=== PATIENT | female | born 1970 | race Caucasian/White ===

== ENCOUNTER 2017-01-08 15:32 | Observation (INO) ==
[2017-01-08] MEDS ORDERED: *HR* Promethazine 25 MG/ML VIAL IVP PRN (15:50)
[2017-01-08] MEDS ORDERED: Ondansetron 4 MG/2 ML VIAL IVP PRN (15:50)
[2017-01-08] MEDS ORDERED: *HR* Morphine 2 MG/ML SYRINGE IVP PRN (15:50)
[2017-01-08] MEDS ORDERED: *HR* HYDROmorphone (PF) 1 MG/ML SYRINGE IVP PRN (15:50)
[2017-01-08] MEDS ORDERED: Ketorolac 15 MG/ML VIAL IVP PRN (15:50)
[2017-01-08] MEDS ORDERED: Naloxone 0.4 MG/ML INJ IVP PRN (15:50)
[2017-01-08] MEDS ORDERED: Levofloxacin 500 MG/100 ML 500 MG/100 ML BAG IVPB ONE (16:29)
--- NOTE | 2017-01-08 16:31 | Urology History & Physical ---
Date of Encounter: 01/08/17 Time of Encounter: 16:29 Assessment and Plan (1) Ureteral stone with hydronephrosis Current Visit: Yes Status: Acute I reviewed the CT images and feel that she has a 5 mm mid to distal right ureteral calculi. This is likely the source of her pain. She's been admitted to the hospital for IV fluids, pain control, tamsulosin and straining of urine. If she is unable to pass a stone she will proceed with a ureteroscopic stone extraction. Started been consented and understands the risks of the procedure which includes injury to the urinary tract, stent discomfort, urinary tract infections, inability to reach the stone. History of Present Illness Chief complaint: right flank pain HPI: Ms. Willingham is a 46 year old female recent severe right flank pain. Has a history of urolithiasis. CT scan yesterday with a report that indicates bilateral nonobstructing stones. On further review it appears she has a 5 mm right mid to distal ureteral stone. Mild hydronephrosis/hydroureter. Positive nausea. Low- grade fever. Past Med Surg Social Fam HX - Past Medical History Medical history: coronary artery disease, GERD, hyperlipidemia, hypertension, kidney stones, migraine, thyroid disease Psychiatric history: anxiety, depression - Past Surgical History Surgical History: appendectomy, hysterectomy, orthopedic, other, thyroidectomy, other - Social History Smoking Status: Current every day smoker Smokeless Tobacco Status: No Alcohol use: occasionally Drug use: none Medications and Allergies Aspirin 81 mg PO DAILY 07/06/15 [History] Cetirizine HCl [Zyrtec] 10 mg PO DAILY 07/06/15 [History] Diazepam [Valium] 10 mg PO TID PRN 07/06/15 [History] Escitalopram [Lexapro] 20 mg PO DAILY 07/06/15 [History] Levothyroxine [Synthroid] 168 mcg PO DAILY 07/06/15 [History] Clopidogrel [Plavix] 75 mg PO DAILY #30 tablet 09/06/15 [Rx] Docusate [Colace] 100 mg PO BID #60 capsule 08/30/16 [Rx] Lovastatin 40 mg PO HS 08/30/16 [History] Metoprolol XL (24 HR) Succ [Toprol Xl] 25 mg PO DAILY 08/30/16 [History] Omeprazole 20 mg PO QPM 08/30/16 [History] OxyCODONE/APAP 10/325 [Percocet 10/325 MG] 1 each PO Q6HR PRN 08/30/16 [History] Tamsulosin [Flomax] 0.4 mg PO DAILY #30 capsule 08/30/16 [Rx] Topiramate [Topamax] 100 mg PO BID 08/30/16 [History] Venlafaxine XR (24 HR) [Effexor Xr] 37.5 mg PO DAILY 08/30/16 [History] Arginine [l-Arginine] 500 mg PO DAILY 10/08/16 [History] Estradiol [Estrace] 1 mg PO DAILY 10/08/16 [History] Olopatadine HCl [Pataday] 1 drop BOTH EYES DAILY 10/08/16 [History] Oxycodone HCl/Acetaminophen [Percocet 10-325 mg Tablet] 1 each PO Q6HR PRN #28 tablet 10/08/16 [Rx] Potassium Chloride [Klor-Con 10] 10 meq PO DAILY 10/08/16 [History] Rivaroxaban [Xarelto] 10 mg PO DAILY #21 tablet 10/08/16 [Rx] Allergies sulfamethoxazole [From Bactrim] Allergy (Verified 10/08/16 07:49) Hives trimethoprim [From Bactrim] Allergy (Verified 10/08/16 07:49) Hives Review of Systems - Constitutional fatigue, fever(s), no chills - EENT Nose, mouth and throat: no dizziness - Cardiovascular no chest pain - Respiratory cough - Gastrointestinal abdominal pain, nausea - Genitourinary Genitourinary: flank pain - Musculoskeletal back pain - Integumentary no erythema - Neurological no confusion - Psychiatric no anxiety - Hematologic/Lymphatic no easy bleeding Exam Initial Vital Signs Temp Pulse Resp BP Pulse Ox 100.6 F H 82 14 146/83 96 01/08/17 16:09 01/08/17 16:09 01/08/17 16:09 01/08/17 16:09 01/08/17 16:09 - General physical appearance Present: well developed, no distress - Eyes Present: PERRL - ENT Present: normal nares - Neck Present: no masses - Respiratory Present: normal respiratory effort - Cardiovascular Cardiovascular exam IM: RRR - Abdomen Abdomen: Present: soft - Integumentary Present: no rash - Neurologic Present: normal coordination - Musculoskeletal Present: normal gait Urology Results - Labs All other labs normal.
[2017-01-08] MEDS ORDERED: diazePAM 10 MG TABLET PO PRN (16:34)
[2017-01-08 17:02] LABS: Calcium 8.8 mg/dL (8.6-10.8); Potassium 3.7 mEq/L (3.5-4.5)
[2017-01-08] MEDS: 0.9 % Sodium Chloride 1,000 ML IVC SCH (17:02)
[2017-01-08 17:58] LABS: Basophils % 0.1 %; Eosinophils % 0.5 %; Hematocrit 38.9 % (35.3-44.9); Immature Granulocytes % 0.4 % (0-4); Lymphocytes # 1.1 K/mcL (0.6-4.6); Lymphocytes % 13.1 %; Mean Corpuscular HGB Conc 33.4 g/dL (31.6-35.5); Mean Corpuscular Hemoglobin 30.5 pg (28.0-33.3); Mean Corpuscular Volume 91.3 fL (83.0-100.0); Mean Platelet Volume 10.6 fL (9.4-12.4); Monocytes # 0.6 K/mcL (0.0-1.3); Monocytes % 7.6 %; Neutrophils # 6.4 K/mcL (1.6-8.9); Platelet Count 188 K/mcL (140-400); Red Blood Count 4.26 M/mcL (3.82-4.97); Segmented Neutrophils % 78.3 %
[2017-01-08] MEDS: *HR* OxyCODONE/APAP 10/325 TABLET PO PRN (18:09)
--- NOTE | 2017-01-08 19:47 | Anesthesia Evaluation PreOp ---
Date of Encounter: 01/08/17 Time of Encounter: 19:44 - Past History Planned Operation: R-ureteroscopic stone extraction Cardiac History: HTN (maintained on Metoprolol), Hyperlipidemia (maintained on Lovastatin), Other (Peripheral Artery Dz s/p Subclavian stent maitnained on ASA/ Plavix [last Plavix dose 01/07/17]) Pulmonary History: Smoker (1ppd x 30yrs) DEPUTY DIRECTOR OF FINANCE History: Syncope (approximately 3 months ago), Other (Migraines tx w/ Topamax prn. Anxiety/Depression maintained on Lexapro, Effexor, Valium) Other Medical History: Renal (Hx kidney stones s/p multiple stone procedures, tx w/Flomax), Bleeding (maintained on Xarelto), Thyroid ( s/p thyroidectomy. Hypothryoidism maintained on Syntrhoid), Other (Glaucoma maintained on Ptaday eye gtt. RayNaud's syndrome) Anesthesia History: No Prior Anesthetic Complications, Past Anesthesia (Appy, Hyster, Partial Thyroidectomy, Bunionectomy, SC stent) Alcohol Use: occasionally Drug use: none Medications and Allergies Aspirin 81 mg PO DAILY 07/06/15 [History] Cetirizine HCl [Zyrtec] 10 mg PO DAILY 07/06/15 [History] Diazepam [Valium] 10 mg PO TID PRN 07/06/15 [History] Escitalopram [Lexapro] 20 mg PO DAILY 07/06/15 [History] Levothyroxine [Synthroid] 168 mcg PO DAILY 07/06/15 [History] Clopidogrel [Plavix] 75 mg PO DAILY #30 tablet 09/06/15 [Rx] Docusate [Colace] 100 mg PO BID #60 capsule 08/30/16 [Rx] Lovastatin 40 mg PO HS 08/30/16 [History] Metoprolol XL (24 HR) Succ [Toprol Xl] 25 mg PO DAILY 08/30/16 [History] Omeprazole 20 mg PO QPM 08/30/16 [History] OxyCODONE/APAP 10/325 [Percocet 10/325 MG] 1 each PO Q6HR PRN 08/30/16 [History] Tamsulosin [Flomax] 0.4 mg PO DAILY #30 capsule 08/30/16 [Rx] Topiramate [Topamax] 100 mg PO BID 08/30/16 [History] Venlafaxine XR (24 HR) [Effexor Xr] 37.5 mg PO DAILY 08/30/16 [History] Arginine [l-Arginine] 500 mg PO DAILY 10/08/16 [History] Estradiol [Estrace] 1 mg PO DAILY 10/08/16 [History] Olopatadine HCl [Pataday] 1 drop BOTH EYES DAILY 10/08/16 [History] Oxycodone HCl/Acetaminophen [Percocet 10-325 mg Tablet] 1 each PO Q6HR PRN #28 tablet 10/08/16 [Rx] Potassium Chloride [Klor-Con 10] 10 meq PO DAILY 10/08/16 [History] Rivaroxaban [Xarelto] 10 mg PO DAILY #21 tablet 10/08/16 [Rx] Allergies sulfamethoxazole [From Bactrim] Allergy (Verified 10/08/16 07:49) Hives trimethoprim [From Bactrim] Allergy (Verified 10/08/16 07:49) Hives - Meds/Allergy Pre-op Review Medications Reviewed: Yes Allergies Reviewed: Yes Beta Blockers on Current Med List: Yes (Metoprolol) If Beta Blockers taken, Date/Time (Last Dose taken): next dose scheduled for 01/09 @ 0900 Anesthesia Results - Labs 01/08/17 16:27 01/08/17 16:27 - Imaging EKG: image reviewed (56 SB) Anesthesia Exam Vital Signs Temp Pulse Resp BP Pulse Ox 01/08/17 19:53 99.7 F H 80 16 95/57 94 L 01/08/17 16:09 100.6 F H 82 14 146/83 96 Intake and Output 01/08/17 01/08/17 01/08/17 07:59 15:59 23:59 Intake Total 370 / 370 Output Total 600 / 600 Balance -230 / -230 Intake: Oral 370 / 370 Output: Urine 600 / 600 Other: Meal Dinner Percent of Meal Consumed 75% Weight 63.9 kg Patient Weight 01/08/17 23:59 Weight 63.9 kg Height: 5'5" Weight: 140# bmI = 23 - HEENT Pupil (Motor): Pupils equal, EOMI Mallampati: II Teeth: Normal (Fair dentition) Oral Opening: Greater than 3 - [employer]PUTY DIRECTOR [employer] FIN[employer] LOC: Oriented [employer]PUT[employer] DIRECTOR [employer] Motor: Normal RUE, Normal LUE, Normal RLE, Normal LLE, Normal Face [employer]PUT[employer] DIRECTOR [employer] Sensory: Normal: RUE, LUE, RLE, LLE, Face - Cardiac Rhythm: Regular Murmur: None - Pulmonary Breath Sounds: bilateral Clear Respiratory Effort: Symmetrical Anesthesia Assess/Plan ASA Score: 3 Modified Geovani Scale for Level of Consciousness: Cooperative, oriented, and tranquil Anesthetic Plan: General Monitoring Plan: Standard Monitors Recovery Plan: PACU Anes Supervising Prov Stmt: Pt seen/evaluated, R&B Discussed, questions answered and consent obtained. Evelyne Saldana MD
[2017-01-08] MEDS: Topiramate 100 MG TABLET PO SCH (21:38)
[2017-01-09] MEDS: *HR* OxyCODONE/APAP 10/325 TABLET PO PRN ×2 (00:31→08:40)
[2017-01-09] MEDS: 0.9 % Sodium Chloride 1,000 ML IVC SCH ×2 (01:35→08:41)
--- NOTE | 2017-01-09 07:17 | Urology Progress Note ---
Date of Encounter: 01/09/17 Time of Encounter: 07:16 - Assessment and Plan (1) Ureteral stone with hydronephrosis Current Visit: Yes Status: Acute Assessment and plan: to OR today for stone extraction Progress Note Narrative: HD 2 for right flank pain and likely mid ureteral stone. did not pass stone Objective Initial Vital Signs Temp Pulse Resp BP Pulse Ox 100.6 F H 82 14 146/83 96 01/08/17 16:09 01/08/17 16:09 01/08/17 16:09 01/08/17 16:09 01/08/17 16:09 - General physical appearance Present: well developed - Abdomen Present: soft - Labs 01/08/17 16:27 01/08/17 16:27 Diabetes panel 01/08/17 Range/Units 16:27 Sodium 139 (136-145) mEq/L Potassium 3.7 (3.5-4.5) mEq/L Chloride 110 H (98-109) mEq/L Carbon Dioxide 21 (19-29) mEq/L BUN 20 (7-20) mg/dL Creatinine 1.23 H (0.57-1.11) mg/dL Glucose 90 (70-99) mg/dL Calcium 8.8 (8.6-10.8) mg/dL Calcium panel 01/08/17 Range/Units 16:27 Calcium 8.8 (8.6-10.8) mg/dL Pituitary panel 01/08/17 Range/Units 16:27 Sodium 139 (136-145) mEq/L Potassium 3.7 (3.5-4.5) mEq/L Chloride 110 H (98-109) mEq/L Carbon Dioxide 21 (19-29) mEq/L BUN 20 (7-20) mg/dL Creatinine 1.23 H (0.57-1.11) mg/dL Glucose 90 (70-99) mg/dL Calcium 8.8 (8.6-10.8) mg/dL Adrenal panel 01/08/17 Range/Units 16:27 Sodium 139 (136-145) mEq/L Potassium 3.7 (3.5-4.5) mEq/L Chloride 110 H (98-109) mEq/L Carbon Dioxide 21 (19-29) mEq/L BUN 20 (7-20) mg/dL Creatinine 1.23 H (0.57-1.11) mg/dL Glucose 90 (70-99) mg/dL Calcium 8.8 (8.6-10.8) mg/dL Consult Discharge Plan - Plan Referrals: Roddy Núñez MD [Primary Care Provider] -
[2017-01-09] MEDS: Topiramate 100 MG TABLET PO SCH (08:58)
[2017-01-09] MEDS ORDERED: Venlafaxine XR (24 HR) 37.5 MG CAP.ER.24H PO SCH (09:00)
[2017-01-09] MEDS ORDERED: Aspirin 81 MG TAB.CHEW PO SCH (09:00)
[2017-01-09] MEDS ORDERED: (Olopatadine Hcl [Pataday] 1 DROP) OP SCH (09:00)
[2017-01-09] MEDS ORDERED: Loratadine 10 MG TABLET PO SCH (09:00)
[2017-01-09] MEDS ORDERED: (Arginine [L-Arginine] 500 MG) PO SCH (09:00)
[2017-01-09] MEDS ORDERED: Metoprolol XL (24 HR) Succ 25 MG TAB.ER.24H PO SCH (09:00)
[2017-01-09] MEDS ORDERED: *HR* Rivaroxaban 10 MG TABLET PO SCH (09:00)
[2017-01-09] MEDS ORDERED: *HR* Propofol 200 MG/20 ML VIAL IVP ONE (14:08)
[2017-01-09] MEDS ORDERED: EPHEDrine 50 MG/ML VIAL ONE (14:08)
[2017-01-09] MEDS ORDERED: *HR* FentaNYL (PF) 100 MCG/2 ML VIAL ONE (14:08)
[2017-01-09] MEDS ORDERED: Ondansetron 4 MG/2 ML VIAL ONE (14:08)
[2017-01-09] MEDS ORDERED: Dexamethasone 4 MG/ML VIAL ONE (14:08)
[2017-01-09] MEDS ORDERED: Lidocaine -MPF 2% 2 ML VIAL ONE (14:08)
[2017-01-09] MEDS ORDERED: *HR* Midazolam HCl 2 MG/2 ML VIAL ONE (14:08)
[2017-01-09] MEDS ORDERED: *HR* HYDROmorphone (PF) 1 MG/ML SYRINGE IVP PRN ×2 (14:10→16:37)
[2017-01-09] MEDS ORDERED: *HR* Promethazine 25 MG/ML VIAL IVP PRN ×2 (14:10→16:37)
--- NOTE | 2017-01-09 14:38 | Operative Note ---
Date of procedure: 01/09/17 Pre-op diagnosis: right ureteral stone Post-op diagnosis: other (no stone found) Anesthesia: CARLOS MANUEL Surgeon: Daniel Grant Condition: stable Disposition: PACU Procedure in Detail: The patient was prepped and draped in normal sterile fashion after being placed in lithotomy position. I then inserted the cystoscope into the patient's bladder. I then cannulated the right ureter with a sensor wire. I then placed the semirigid ureteroscope into the ureter. i was able to place this all the way to the renal pelvis. no stone was found. I then placed the flexible ureteroscope into the right renal pelvis and each calyx was visualized without any stones found. scope was removed, bladder drained and procedure ended.
--- NOTE | 2017-01-09 14:41 | Discharge Summary ---
Date of Encounter: 01/09/17 Time of Encounter: 14:38 - Discharge Diagnosis (1) UTI (urinary tract infection) Priority: Primary Status: Acute Qualifiers: Urinary tract infection type: acute cystitis Hematuria presence: without hematuria Qualified Code(s): N30.00 - Acute cystitis without hematuria - Discharge Medications Prescriptions: OxyCODONE/APAP 10/325 [Percocet 10/325 MG] 1 each PO Q6HR PRN #10 tablet PRN Reason: Mild Pain Ciprofloxacin [Cipro] 500 mg PO BID #14 tablet Home Medications: Aspirin 81 mg PO DAILY 07/06/15 [History] Diazepam [Valium] 10 mg PO TID PRN 07/06/15 [History] Escitalopram [Lexapro] 20 mg PO DAILY 07/06/15 [History] Levothyroxine [Synthroid] 175 mcg PO DAILY 07/06/15 [History] Clopidogrel [Plavix] 75 mg PO DAILY #30 tablet 09/06/15 [Rx] Lovastatin 40 mg PO HS 08/30/16 [History] Metoprolol XL (24 HR) Succ [Toprol Xl] 25 mg PO DAILY 08/30/16 [History] Omeprazole 20 mg PO QPM 08/30/16 [History] OxyCODONE/APAP 10/325 [Percocet 10/325 MG] 1 each PO TID PRN 08/30/16 [History] Venlafaxine XR (24 HR) [Effexor Xr] 37.5 mg PO DAILY 08/30/16 [History] Arginine [l-Arginine] 500 mg PO DAILY 10/08/16 [History] Estradiol [Estrace] 1 mg PO DAILY 10/08/16 [History] Olopatadine HCl [Pataday] 1 drop BOTH EYES BID 10/08/16 [History] Ciprofloxacin [Cipro] 500 mg PO BID #14 tablet 01/09/17 [Rx] Loratadine/Pseudophed (12 HR) [Claritin D (12HR)] 1 each PO BID 01/09/17 [ History] OxyCODONE/APAP 10/325 [Percocet 10/325 MG] 1 each PO Q6HR PRN #10 tablet [Rx] Potassium Citrate [Urocit-K] 10 meq PO BID 01/09/17 [History] Topiramate [Topamax] 50 mg PO BID 01/09/17 [History] Allergies/Adverse Reactions: Allergies sulfamethoxazole [From Bactrim] Allergy (Verified 01/09/17 08:42) Hives trimethoprim [From Bactrim] Allergy (Verified 01/09/17 08:42) Hives Labs on day of discharge: Labs from last 24 hours 01/08/17 01/08/17 16:27 16:27 WBC 8.2 D RBC 4.26 Hgb 13.0 Hct 38.9 MCV 91.3 MCH 30.5 MCHC 33.4 RDW 13.0 Plt Count 188 MPV 10.6 Immature Gran % 0.4 Seg Neutrophils % 78.3 Lymphocytes % 13.1 Monocytes % 7.6 Eosinophils % 0.5 Basophils % 0.1 Neutrophils # 6.4 Lymphocytes # 1.1 Monocytes # 0.6 Eosinophils # 0.0 Basophils # 0.0 Sodium 139 Potassium 3.7 Chloride 110 H Carbon Dioxide 21 BUN 20 Creatinine 1.23 H Est GFR ( Amer) 57 L Est GFR (Non-Af Amer) 47 L BUN/Creatinine Ratio 16 Glucose 90 Calculated Osmolality 290 Calcium 8.8 Date of admission: 01/08/17 15:33 Primary care physician: Roddy Núñez MD Discharging clinician: Daniel Grant Anticipated date of discharge: 01/09/17 - Patient Status Disposition: Home, Self-Care Condition: Good Functional capacity at discharge: independent ambulation Overall status at discharge: patient is progressing back to baseline - Discharge Instructions Follow Up With: Roddy Núñez MD [Primary Care Provider] - Jose Cruz Steele MD [Partnered Physician] - (3-4 weeks) - Diet and Activity Activity: increase activity as tolerated Diet: advance to your usual diet - Hospital Course Hospital course: Ms. Willingham is a 46 year old female - Time Spent with Patient Total time spent providing and/or coordinating discharge services: Exam Initial Vital Signs Temp Pulse Resp BP Pulse Ox 100.6 F H 82 14 146/83 96 01/08/17 16:09 01/08/17 16:09 01/08/17 16:09 01/08/17 16:09 01/08/17 16:09 - VTE Documentation of Mechanical Device: Intermittent pneumatic compression device
--- NOTE | 2017-01-09 14:59 | Anesthesia Evaluation Post Op ---
Date of Encounter: 01/09/17 Time of Encounter: 14:58 - Vital Signs Vital Signs: Vital Signs/O2 Sat, Most Current Temp Pulse Resp BP Pulse Ox 97.2 F L 82 12 106/76 95 01/09/17 14:34 01/09/17 14:44 01/09/17 14:44 01/09/17 14:44 01/09/17 14:44 - Lungs Lungs: Clear Ascult./Percussion - Airway Airway: Non-obstructed - Cardiovascular Regular Rate - Mental Status Mental Status: Alert & Oriented, Answers Appropriately - Pain Pain Scale: 0 Pain Scale used: Numeric (1 - 10) - Nausea Vomiting Nausea Vomiting: Not Present - Hydration Hydration: Ice chips, Has not voided - Discharge PostOp Status: Transfer Patient to floor
[2017-01-09] MEDS ORDERED: 0.9 % Sodium Chloride 1,000 ML IVC SCH (16:37)
[2017-01-09] MEDS ORDERED: *HR* Morphine 2 MG/ML SYRINGE IVP PRN (16:37)
[2017-01-09] MEDS ORDERED: Naloxone 0.4 MG/ML INJ IVP PRN (16:37)
[2017-01-09] MEDS ORDERED: *HR* OxyCODONE/APAP 10/325 TABLET PO PRN (16:37)
[2017-01-09] MEDS ORDERED: Ondansetron 4 MG/2 ML VIAL IVP PRN (16:37)
[2017-01-09] MEDS ORDERED: diazePAM 10 MG TABLET PO PRN (16:37)
[2017-01-09 16:43] VITALS: BP 107/67
[2017-01-09] MEDS ORDERED: Topiramate 100 MG TABLET PO SCH (21:00)
[2017-01-10] MEDS ORDERED: Metoprolol XL (24 HR) Succ 25 MG TAB.ER.24H PO SCH (09:00)
[2017-01-10] MEDS ORDERED: Patient Taking Own Medication 1 EACH PO SCH (09:00)
[2017-01-10] MEDS ORDERED: Aspirin 81 MG TAB.CHEW PO SCH (09:00)
[2017-01-10] MEDS ORDERED: Loratadine 10 MG TABLET PO SCH (09:00)
[2017-01-10] MEDS ORDERED: *HR* Rivaroxaban 10 MG TABLET PO SCH (09:00)
[2017-01-10] MEDS ORDERED: Patient Taking Own Medication 1 EACH OP SCH (09:00)
[2017-01-10] MEDS ORDERED: Venlafaxine XR (24 HR) 37.5 MG CAP.ER.24H PO SCH (09:00)
== END 2017-01-09 16:45 | disposition home or self-care (01) ==
LOC: 3ANU
PROVIDERS: ADMIT Urology; ATTEND Urology

== ENCOUNTER 2017-10-16 06:35 | Observation (INO) ==
[2017-10-16] MEDS ORDERED: Aspirin 81 MG TAB.CHEW PO ONE (06:45)
[2017-10-16] MEDS ORDERED: *HR* Morphine 2 MG/ML SYRINGE IVP ONE (06:45)
[2017-10-16] MEDS ORDERED: 0.9 % Sodium Chloride 500 ML IVC ONE (06:45)
[2017-10-16] MEDS ORDERED: Ondansetron 4 MG/2 ML VIAL IVP ONE (06:45)
--- NOTE | 2017-10-16 06:53 | Emergency Department Note ---
Disposition Clinical Impression: Chest pain Qualifiers: Chest pain type: other chest pain Qualified Code(s): R07.89 - Other chest pain Disposition: Admitted As Inpatient Condition: Undetermined General Adult HPI - General Chief complaint: ED Extremity Problem,Nontraumatic Stated complaint: states stent in L clavicle hurts Time Seen by Provider: 10/16/17 06:37 Source: patient Mode of arrival: private vehicle Limitations: no limitations Nursing Notes Reviewed: Yes Vital Signs Reviewed: Yes - History of Present Illness Pt Subjective Complaint: left upper chest wall pain Onset (ago): hour(s) Location: chest Radiation: back (Patient points to left upper chest wall, just inferior to mid left clavicle and states that it radiates "straight through to the back.") Pain Severity: moderate, severe Pain Scale: 7 Quality: stabbing, sharp Consistency: constant Improves with: nothing Worsens with: nothing (movement of trunk or arm does not cause pain to worsen or change) Associated symptoms: Reports: fever/chills (chills), nausea/vomiting. Denies: confusion, cough ("no more than usual"), diaphoresis, headaches, loss of appetite, malaise, rash, seizure, shortness of breath, syncope, weakness Treatments Prior to Arrival: none - Related Data Home Medications Medication Instructions Recorded Confirmed Aspirin 81 mg PO DAILY 07/06/15 10/16/17 Escitalopram [Lexapro] 20 mg PO DAILY 07/06/15 10/16/17 Levothyroxine [Synthroid] 175 mcg PO DAILY 07/06/15 10/16/17 Lovastatin 40 mg PO HS 08/30/16 10/16/17 Metoprolol XL (24 HR) Succ [Toprol 25 mg PO DAILY 08/30/16 10/16/17 Xl] Omeprazole 20 mg PO QPM 08/30/16 10/16/17 Olopatadine HCl [Pataday] 1 drop BOTH EYES BID 10/08/16 10/16/17 Loratadine/Pseudophed (12 HR) 1 each PO BID 01/09/17 10/16/17 [Claritin D (12HR)] Topiramate [Topamax] 50 mg PO BID 01/09/17 10/16/17 Acetaminophen/Butalbital/Caffe 1 each PO Q6HR PRN 10/16/17 10/16/17 [Fioricet] Amitriptyline [Elavil] 25 mg PO HS 10/16/17 10/16/17 Famotidine [Pepcid] 40 mg PO DAILY 10/16/17 10/16/17 Meloxicam [Mobic] 15 mg PO DAILY PRN 10/16/17 10/16/17 Oxycodone HCl/Acetaminophen 1 each PO BID PRN 10/16/17 10/16/17 [Percocet 7.5-325 mg Tablet] Verapamil [Isoptin] 40 mg PO TID 10/16/17 10/16/17 Previous Rx's Medication Instructions Recorded Clopidogrel [Plavix] 75 mg PO DAILY #30 tablet 09/06/15 Allergies Allergy/AdvReac Type Severity Reaction Status Date / Time sulfamethoxazole Allergy Hives Verified 10/16/17 06:40 [From Bactrim] trimethoprim [From Bactrim] Allergy Hives Verified 10/16/17 06:40 All systems ED: reviewed and negative except as stated. Review of Systems: As Per HPI Constitutional: Reports: chills. Denies: weakness, night sweats Eyes: Denies: vision change ENT ED: Denies: throat pain, congestion, dysphagia Cardiovascular: Reports: as per HPI, chest pain. Denies: palpitations, dyspnea on exertion, orthopnea, edema, syncope Respiratory: Reports: as per HPI. Denies: dyspnea, wheezes, hemoptysis, stridor Gastrointestinal: Reports: as per HPI, nausea. Denies: abdominal pain, vomiting , diarrhea Genitourinary: Denies: urgency, dysuria, frequency, hematuria Musculoskeletal: Denies: back pain, neck pain, joint swelling, arthralgia Integumentary: Denies: rash Neurological: Denies: headache ("none today - sinus headache yesterday"), weakness, numbness, paresthesias, confusion, abnormal gait, vertigo Hematological/Lymphatic: Reports: easy bruising. Denies: easy bleeding, lymphadenopathy Past Medical History - Past Medical History Attestation: Yes The following information was validated with the patient. Source: patient, old records reviewed Medical history: Reports: aortic aneurysm, coronary artery disease, GERD, hyperlipidemia, hypertension, kidney stones, migraine, peripheral artery disease , thyroid disease Surgical history: Reports: appendectomy, hysterectomy, orthopedic, other, thyroidectomy, other ("Stent placed in subclavian artery") Psychiatric history: Reports: anxiety, depression [employer] history: Reports: non-contributory - Social History Smoking Status: Current every day smoker Smokeless Tobacco Status: No Alcohol use: Reports: rarely Drug use: Reports: none Physical Exam - General Limitations: no limitations General appearance: alert, in no apparent distress - Head Head exam: atraumatic, normocephalic, normal inspection - Eye Eye exam: Present: normal appearance, PERRL. Absent: scleral icterus, conjunctival injection, periorbital swelling - ENT ENT exam: mucous membranes dry - Neck Neck exam: Present: normal inspection, full ROM, trachea midline. Absent: tenderness, meningismus - Chest Chest inspection: Present: normal inspection, symmetric chest wall rise. Absent : tenderness - Respiratory Respiratory exam: Present: normal lung sounds bilaterally. Absent: respiratory distress, wheezes, stridor, accessory muscle use, prolonged expiratory phase - Cardiovascular Cardiovascular exam: Present: regular rate, normal rhythm, normal heart sounds - Abdominal Exam Abdominal exam: Present: soft, Non-Tender, normal bowel sounds. Absent: distention, guarding, rebound, rigidity, organomegaly, ascites, mass, pulsatile mass - Extremities Exam Extremities exam: Present: normal inspection, full ROM, normal capillary refill. Absent: tenderness, pedal edema, joint swelling - Back Exam Back exam: Present: normal inspection, full ROM. Absent: tenderness, CVA tenderness (R), CVA tenderness (L) - Neurological Exam Neurological exam: Present: alert, oriented X3, CN II-XII intact, normal gait - Psychiatric Psychiatric exam: Present: normal affect, normal mood - Skin Skin exam: Present: warm, dry, intact, normal color Course Course Narrative: Patient presents from home with family for evaluation of left upper chest wall pain that woke her from sleep. She denies dyspnea, syncope, change in chronic cough, vomiting or fever. She has had chills and nausea. Nothing makes her pain better or worse. She has hx of PAD, infrarenal aortic dissection - stable per CTA done in August, and a stent in the left subclavian artery - placed two years ago. She denies hx of PA. On exam she appears uncomfortable but non-toxic. She has chills. Vitals are normal. Pain is not reproducible. EKG is normal. CXR is normal. Labs are pending. Case has been discussed with Dr. Mclaughlin. He has had face to face time with the patient and agrees with the assessment and plan. Troponin is normal. Heart score is 4. Hospitalist has been paged for admission. Vital Signs Temperature 98.2 F 10/16/17 06:37 Pulse Rate 87 10/16/17 06:37 Respiratory Rate 20 10/16/17 06:37 Blood Pressure 125/82 10/16/17 06:37 O2 Sat by Pulse Oximetry 100 10/16/17 06:37 Temperature 98.8 F 10/16/17 08:56 Pulse Rate 86 10/16/17 08:56 Respiratory Rate 16 10/16/17 08:56 Blood Pressure 103/68 10/16/17 08:56 O2 Sat by Pulse Oximetry 94 10/16/17 08:56 Oxygen Delivery Oxygen Delivery Room Air Medical Decision Making - Medical Records Medical records reviewed: Yes I reviewed the patient's medical records. - Lab Data Lab results reviewed: Yes I reviewed the patient's lab results. Result diagrams: 10/16/17 07:08 10/16/17 07:08 - Radiology Data Radiology results reviewed: Yes I reviewed the patient's radiology results. Chest X-Ray 10/16/17 06:45 IMPRESSION: No acute cardiopulmonary disease. Vascular stent projects over the left subclavian artery. D/ / Reynaldo Suarez MD / Reynaldo Suarez MD Interpreting Provider: Reynaldo Suarez MD - EKG Data EKG #1 EKG attestation: Yes I reviewed and interpreted this EKG. EKG shows normal: sinus rhythm Rate: normal Rhythm: NSR [place]/QRS: normal When compared to previous EKG there are: no significant changes Interpretation: unchanged when compared to prior tracing (date) (07/30/16) Attestation Statement - Attestation Attestation: I have personally performed a face to face evaluation on this patient. I have reviewed and agree with the care plan. History and Exam by me shows: Sudden-onset tammi-clavicular pain in pt w h/o chronic abdominal aortic dissection. HR/BP normal, pain present but not as severe as at onset when it woke her from sleep. Arms NVI, radial pulses 2+/symm b/l. No murmur, no bruit over subclavian area or carotid. Suspicion for dissection is low but not sufficiently low to avoid testing - CTA ordered. HEART score is 4 without the Troponin. Admission for further eval/testing, CTA pending at the time of dispo.
[2017-10-16 07:28] LABS: INR 1.1; Prothrombin Time 11.6 Seconds (9.4-12.1)
[2017-10-16 07:30] LABS: Activated Partial Thrombo Time 28.6 Seconds (26.0-36.0)
[2017-10-16 07:33] LABS: BUN/Creatinine Ratio 17 (6-26); Blood Urea Nitrogen 18 mg/dL (7-20); Calcium 8.8 mg/dL (8.6-10.8); Carbon Dioxide 17 mEq/L (19-29); Chloride 111 mEq/L (98-109); Glucose 114 mg/dL (70-99); Osmolality,Calculated 293 (280-300); Potassium 3.9 mEq/L (3.5-4.5); Sodium 140 mEq/L (136-145); eGFR For African Americans > 60 (> 60); eGFR For Non-African Americans 54 (> 60)
[2017-10-16 07:34] LABS: Albumin 3.5 g/dL (3.5-5.0); Bilirubin,Direct 0.1 mg/dL (0.0-0.5); Bilirubin,Indirect 0.2 mg/dL (0.0-1.2); Bilirubin,Total 0.3 mg/dL (0.2-1.2); Globulin 3.6 g/dL (2.4-3.5); Total Protein 7.1 g/dL (6.0-8.3)
[2017-10-16 07:41] LABS: Basophils % 0.2 %; Eosinophils # 0.1 K/mcL (0.0-0.6); Eosinophils % 0.7 %; Hemoglobin 12.8 g/dL (11.5-15.4); Immature Granulocytes % 0.2 % (0-4); Lymphocytes # 0.7 K/mcL (0.6-4.6); Lymphocytes % 8.3 %; Mean Corpuscular HGB Conc 33.7 g/dL (31.6-35.5); Mean Corpuscular Hemoglobin 30.5 pg (28.0-33.3); Mean Corpuscular Volume 90.5 fL (83.0-100.0); Monocytes # 0.5 K/mcL (0.0-1.3); Monocytes % 6.5 %; Neutrophils # 6.9 K/mcL (1.6-8.9); Platelet Count 170 K/mcL (140-400); Red Cell Distribution Width 13.2 % (11.5-14.5); Segmented Neutrophils % 84.1 %
[2017-10-16 07:43] LABS: Bilirubin,Urine Negative (Negative); Blood,Urine Trace (Negative); Color,Urine Yellow (Yellow); Glucose,Urine (UA) Normal (Normal); Ketones,Urine Negative (Negative); Leukocyte Esterase,Urine Negative (Negative); Nitrite,Urine Negative (Negative); PH,Urine 6.5 pH Units (5.0-8.0); Protein,Urine Negative (Neg-Trace); Specific Gravity,Urine 1.023 (1.010-1.025); Urobilinogen,Urine Normal (Normal)
[2017-10-16 07:45] LABS: Bacteria,Urine None Seen per hpf (None-Few); Hyaline Casts,Urine None Seen per lpf (None-Few); RBC,Urine 0-3 per hpf (0-3); Squamous Epithelial Cell,Urine Moderate per lpf (None-Few)
[2017-10-16 07:47] LABS: Clarity,Urine Slightly Hazy (Clear)
[2017-10-16 08:00] LABS: Calcium Oxalate Crystals,Urine Present
--- NOTE | 2017-10-16 09:38 | Internal Med History&Physical ---
Date of Encounter: 10/16/17 Time of Encounter: 09:00 Assessment and Plan (1) Chest pain Current visit: Yes Status: Acute -In the ER, patients first set of troponins are negative and no acute findings on chest x-ray; no ST/T-wave changes on EKG. -Will continue to trend cardiac biomarkers and monitor on telemetry. -Will also order a pharmacological stress test for ACS rule out. Qualifiers: Chest pain type: unspecified Qualified Code(s): R07.9 - Chest pain, unspecified (2) PAD (peripheral artery disease) Current visit: Yes Status: Acute -Past medical history significant for peripheral arterial disease (stent in left subclavian artery 2014) -Continue aspirin and Plavix (3) Smoker Current visit: Yes Status: Acute -Discussed with patient about smoking cessation but she is not ready to quit. -Nicotine replacement offered. (4) Hypothyroid Current visit: Yes Status: Acute -Continue home dose of levothyroxine Qualifiers: Hypothyroidism type: unspecified Qualified Code(s): E03.9 - Hypothyroidism , unspecified (5) GERD (gastroesophageal reflux disease) Current visit: Yes Status: Acute -Continue home PPI Qualifiers: Esophagitis presence: esophagitis presence not specified Qualified Code(s) : K21.9 - Gastro-esophageal reflux disease without esophagitis (6) Mood disorder Current visit: Yes Status: Acute -Continue home medications (7) Migraine Current visit: Yes Status: Acute -Continue home dose of Topamax. Qualifiers: Qualified Code(s): G43.909 - Migraine, unspecified, not intractable, without status migrainosus (8) DVT prophylaxis Current visit: Yes Status: Acute -Subcutaneous heparin Internal Medicine - H&P: HPI Chief complaint: Chest pain Admitted From: Home Plans for Post Hospital Care: Home History of present illness: Patient is a 47-year-old female with past medical history significant for peripheral arterial disease (stent in left subclavian artery 2014), smoker, hypothyroid, chronic back pain, mood disorder and GERD who presents to the ER on 10/16/17 with chest pain. Patient reports of left upper chest pain towards her shoulder that she describes as sharp with a severity of 7 out of 10 which is constant. Patient denies any provoking or relieving factors and denies any radiation to her pain. Patient reports of associated symptom of nausea. She was concerned and decided to come to the ER for evaluation. In the ER, patients first set of troponins are negative and no acute findings on chest x-ray; no ST/T-wave changes on EKG. Patient has risk factors of peripheral arterial disease and is a smoker so will be admitted to the medical surgical floor for ACS rule out. Past Med Surg Social Fam HX - Past Medical History Medical history: aortic aneurysm, coronary artery disease, GERD, hyperlipidemia , hypertension, kidney stones, migraine, peripheral artery disease, thyroid disease Psychiatric history: anxiety, depression - Past Surgical History Surgical History: appendectomy, hysterectomy, orthopedic, other, thyroidectomy, other ("Stent placed in subclavian artery") - Social History Smoking Status: Current every day smoker Smokeless Tobacco Status: No Alcohol use: rarely Drug use: none Internal Medicine - H&P: Meds Aspirin 81 mg PO DAILY 07/06/15 [History] Escitalopram [Lexapro] 20 mg PO DAILY 07/06/15 [History] Levothyroxine [Synthroid] 175 mcg PO DAILY 07/06/15 [History] Clopidogrel [Plavix] 75 mg PO DAILY #30 tablet 09/06/15 [Rx] Lovastatin 40 mg PO HS 08/30/16 [History] Metoprolol XL (24 HR) Succ [Toprol Xl] 25 mg PO DAILY 08/30/16 [History] Omeprazole 20 mg PO QPM 08/30/16 [History] Olopatadine HCl [Pataday] 1 drop BOTH EYES BID 10/08/16 [History] Loratadine/Pseudophed (12 HR) [Claritin D (12HR)] 1 each PO BID 01/09/17 [ History] Topiramate [Topamax] 50 mg PO BID 01/09/17 [History] Acetaminophen/Butalbital/Caffe [Fioricet] 1 each PO Q6HR PRN 10/16/17 [History] Amitriptyline [Elavil] 25 mg PO HS 10/16/17 [History] Famotidine [Pepcid] 40 mg PO DAILY 10/16/17 [History] Meloxicam [Mobic] 15 mg PO DAILY PRN 10/16/17 [History] Oxycodone HCl/Acetaminophen [Percocet 7.5-325 mg Tablet] 1 each PO BID PRN 10/16 [History] Verapamil [Isoptin] 40 mg PO TID 10/16/17 [History] 3 Allergy/AdvReac Type Severity Reaction Status Date / Time sulfamethoxazole Allergy Hives Verified 10/16/17 06:40 [From Bactrim] trimethoprim [From Bactrim] Allergy Hives Verified 10/16/17 06:40 All Systems PM: A 10-system review of systems was performed and is negative for pertinent findings except as documented above in the HPI. - Constitutional Vitals: Temp Pulse Resp BP Pulse Ox 98.8 F 86 16 103/68 94 10/16/17 08:56 10/16/17 08:56 10/16/17 08:56 10/16/17 08:56 10/16/17 08:56 General appearance: Present: A&O X 3, no acute distress - Head Head exam: Present: normocephalic - Eye Eye exam: Present: normal appearance - ENT ENT exam: Present: mucous membranes moist - Respiratory Respiratory exam: Present: CTAB. Absent: accessory muscle use, rales, rhonchi, wheezes - Cardiovascular Cardiovascular exam: Present: RRR, +S1, +S2. Absent: diastolic murmur, gallop, rubs, systolic murmur - GI/Abdominal GI/Abdominal exam: Present: normal bowel sounds, soft, no peritoneal signs. Absent: distended, tenderness - Extremities Exam Extremities exam: Absent: pedal edema - Neurological Exam Neurological exam: Present: oriented X3, no focal deficits - Psychiatric Psychiatric exam: Present: normal mood - Skin Skin exam: Present: normal color Internal Med - H&P Results - Labs CBC & Chem 7: 10/16/17 07:08 10/16/17 07:08
[2017-10-16] MEDS ORDERED: Naloxone 0.4 MG/ML INJ IVP PRN (09:46)
[2017-10-16] MEDS ORDERED: *HR* OxyCODONE/APAP 7.5/325 TABLET PO PRN (09:51)
[2017-10-16] MEDS: *HR* Heparin 5,000 UNIT/ML VIAL SQ SCH ×2 (13:44→21:00)
--- NOTE | 2017-10-16 19:00 | Electrocardiograph Report ---
[place] [id number] Test Date: 2017-10-16 Pat Name: Valentina Willingham Department: 104 Room: 3A34 Gender: F Cementer Hand: ARYA : 1970 Requested By: Jenny Rosen Order Number: [id number] Reading MD: Chun Isaacs DO Measurements Intervals [place] Rate: 77 P: 62 [place]: 143 QRS: 15 QRSD: 87 T: 50 QT: 375 QTc: 407 Interpretive Statements SINUS RHYTHM Electronically Signed On 10-16-2017 18:58:16 EST by Chun Isaacs DO
[2017-10-16] MEDS: Topiramate 25 MG TABLET PO SCH (21:00)
[2017-10-16] MEDS: (Olopatadine Hcl [Pataday] 1 DROP) OP SCH (21:00)
[2017-10-17 00:50] LABS: Basophils % 0.2 %; Eosinophils # 0.1 K/mcL (0.0-0.6); Hematocrit 34.4 % (35.3-44.9); Hemoglobin 11.5 g/dL (11.5-15.4); Immature Granulocytes % 0.2 % (0-4); Lymphocytes # 1.3 K/mcL (0.6-4.6); Lymphocytes % 23.5 %; Mean Corpuscular HGB Conc 33.4 g/dL (31.6-35.5); Mean Corpuscular Hemoglobin 30.7 pg (28.0-33.3); Mean Platelet Volume 10.2 fL (9.4-12.4); Monocytes # 0.4 K/mcL (0.0-1.3); Neutrophils # 3.6 K/mcL (1.6-8.9); Platelet Count 155 K/mcL (140-400); Red Blood Count 3.74 M/mcL (3.82-4.97); Red Cell Distribution Width 13.2 % (11.5-14.5); Segmented Neutrophils % 67.1 %
[2017-10-17 01:03] LABS: BUN/Creatinine Ratio 14 (6-26); Blood Urea Nitrogen 15 mg/dL (7-20); Calcium 8.9 mg/dL (8.6-10.8); Carbon Dioxide 21 mEq/L (19-29); Chloride 113 mEq/L (98-109); Glucose 95 mg/dL (70-99); Osmolality,Calculated 289 (280-300); Potassium 3.6 mEq/L (3.5-4.5); Sodium 139 mEq/L (136-145); eGFR For African Americans > 60 (> 60); eGFR For Non-African Americans 56 (> 60)
[2017-10-17] MEDS: *HR* Heparin 5,000 UNIT/ML VIAL SQ SCH (05:25)
[2017-10-17] MEDS ORDERED: Regadenoson 0.4 MG/5 ML SYRINGE IVP ONE (06:07)
[2017-10-17] MEDS ORDERED: Aspirin 81 MG TAB.CHEW PO SCH (09:00)
[2017-10-17] MEDS ORDERED: Famotidine 20 MG TABLET PO SCH (09:00)
[2017-10-17] MEDS ORDERED: Metoprolol XL (24 HR) Succ 25 MG TAB.ER.24H PO SCH (09:45)
[2017-10-17] MEDS: Topiramate 25 MG TABLET PO SCH (10:18)
--- NOTE | 2017-10-17 10:18 | Discharge Summary ---
Date of Encounter: 10/18/17 Time of Encounter: 10:20 - Discharge Diagnosis (1) Chest pain Priority: Primary Status: Acute Qualifiers: Chest pain type: unspecified Qualified Code(s): R07.9 - Chest pain, unspecified (2) PAD (peripheral artery disease) Priority: Secondary Status: Acute (3) Hypothyroid Priority: Secondary Status: Acute Qualifiers: Hypothyroidism type: unspecified Qualified Code(s): E03.9 - Hypothyroidism , unspecified (4) Mood disorder Priority: Secondary Status: Acute (5) GERD (gastroesophageal reflux disease) Priority: Secondary Status: Acute Qualifiers: Esophagitis presence: esophagitis presence not specified Qualified Code(s) : K21.9 - Gastro-esophageal reflux disease without esophagitis (6) Migraine Priority: Secondary Status: Acute Qualifiers: Migraine type: without aura Status migrainosus presence: without status migrainosus Intractability: not intractable Qualified Code(s): G43.009 - Migraine without aura, not intractable, without status migrainosus - Discharge Medications Home Medications: Aspirin 81 mg PO DAILY 07/06/15 [History] Escitalopram [Lexapro] 20 mg PO DAILY 07/06/15 [History] Levothyroxine [Synthroid] 175 mcg PO DAILY 07/06/15 [History] Clopidogrel [Plavix] 75 mg PO DAILY #30 tablet 09/06/15 [Rx] Lovastatin 40 mg PO HS 08/30/16 [History] Metoprolol XL (24 HR) Succ [Toprol Xl] 25 mg PO DAILY 08/30/16 [History] Omeprazole 20 mg PO QPM 08/30/16 [History] Olopatadine HCl [Pataday] 1 drop BOTH EYES BID 10/08/16 [History] Loratadine/Pseudophed (12 HR) [Claritin D (12HR)] 1 each PO BID 01/09/17 [ History] Topiramate [Topamax] 50 mg PO BID 01/09/17 [History] Acetaminophen/Butalbital/Caffe [Fioricet] 1 each PO Q6HR PRN 10/16/17 [History] Amitriptyline [Elavil] 25 mg PO HS 10/16/17 [History] Famotidine [Pepcid] 40 mg PO DAILY 10/16/17 [History] Meloxicam [Mobic] 15 mg PO DAILY PRN 10/16/17 [History] Oxycodone HCl/Acetaminophen [Percocet 7.5-325 mg Tablet] 1 each PO BID PRN 10/16 [History] Verapamil [Isoptin] 40 mg PO TID 10/16/17 [History] Allergies/Adverse Reactions: 3 Allergy/AdvReac Type Severity Reaction Status Date / Time sulfamethoxazole Allergy Hives Verified 10/16/17 06:40 [From Bactrim] trimethoprim [From Bactrim] Allergy Hives Verified 10/16/17 06:40 Procedures/tests Complete & Pending: Procedures Performed prior 72 hours Category Date Time Status CTA chest [CT angio chest] [CT] Stat Cat Scan 10/16/17 08:35 Draft NM ny perf SPECT multi [NM] Routine Exams 10/17/17 07:00 Taken SP pharm nuclear stress Stat Y 10/17/17 09:49 Completed Date of admission: 10/16/17 08:24 Primary care physician: Roddy Núñez MD - Patient Status Disposition: Home, Self-Care Condition: Fair Functional capacity at discharge: independent ambulation Overall status at discharge: patient is back to baseline - Discharge Instructions Instructions: Peripheral Vascular Disorders (DC) Follow Up With: Roddy Núñez MD [Primary Care Provider] - 10/24/17 1:15 pm Forms: Inpatient Work/School Release - Diet and Activity Activity: resume usual activities as tolerated Diet: regular diet Hospital course: Ms. Willingham is a 47 year old female with past medical history significant for peripheral arterial disease (stent in left subclavian artery 2014), smoker, hypothyroid, chronic back pain, mood disorder and GERD who presents to the ER on 10/16/17 with chest pain. Patient reported of left upper chest pain towards her shoulder that she describes as sharp with a severity of 7 out of 10 which is constant. In the ER, patients first set of troponins are negative and no acute findings on chest x-ray; no ST/T-wave changes on EKG. She was admitted to the hospitalist service and trops remained negative. She underwent a nuclear stress test and was negative. She was discharged on 10/17/2017 with follow up with her PCP. - Time Spent with Patient Total time spent providing and/or coordinating discharge services: - Constitutional Vitals: Temp Pulse Resp BP Pulse Ox 99.0 F 81 15 92/61 97 10/17/17 04:43 10/17/17 04:43 10/17/17 04:43 10/17/17 04:43 10/17/17 04:43 General appearance: Present: A&O X 3, no acute distress Exam: GEN: NAD CVS: RRR. S1, S2, No m/r/g RESP: CTAB ABD: Soft, NT, ND, +BS EXT: No edema. 2+ DP. No rashes NEURO: Nonfocal
[2017-10-17] MEDS: (Olopatadine Hcl [Pataday] 1 DROP) OP SCH (10:19)
[2017-10-17 10:36] VITALS: BP 104/55
== END 2017-10-17 14:19 | disposition home or self-care (01) ==
LOC: 3ANU 06:35 → EMEROO 06:35 → 3ANU 08:41
PROVIDERS: ADMIT Hospitalist; ATTEND Internal Medicine

== ENCOUNTER 2018-03-25 00:58 | Observation (INO) ==
--- NOTE | 2018-03-25 01:43 | Emergency Department Note ---
Disposition Clinical Impression: Chest pain Qualifiers: Chest pain type: unspecified Qualified Code(s): R07.9 - Chest pain, unspecified Disposition: Admitted As Inpatient Chest Pain HPI - General Chief Complaint: ED Chest Pain Stated Complaint: cp Time Seen by Provider: 03/25/18 01:17 Source: patient Limitations: no limitations Vital Signs Reviewed: Yes Nursing Notes Reviewed: Yes - History of Present Illness HPI Narrative: 48-year-old female presents to the emergency department with left-sided chest pain that started at 3:30 PM yesterday. Patient states that she was getting off the lawnmower, started exerting herself as a lawnmower was stuck and she started having the left-sided chest tightness. Stated it was intermittent in nature but never going away. Patient also endorses nausea with it. Patient is a smoker, does have a stent. Severity scale (1-10): 6 - Related Data Home Medications Medication Instructions Recorded Confirmed Aspirin 81 mg PO DAILY 07/06/15 01/30/18 Escitalopram [Lexapro] 20 mg PO DAILY 07/06/15 01/30/18 Levothyroxine [Synthroid] 175 mcg PO DAILY 07/06/15 01/30/18 Lovastatin 40 mg PO HS 08/30/16 01/30/18 Metoprolol XL (24 HR) Succ [Toprol 25 mg PO DAILY 08/30/16 01/30/18 Xl] Olopatadine HCl [Pataday] 1 drop BOTH EYES BID 10/08/16 01/30/18 Topiramate [Topamax] 50 mg PO BID 01/09/17 01/30/18 Famotidine [Pepcid] 40 mg PO DAILY 10/16/17 01/30/18 Oxycodone HCl/Acetaminophen 1 each PO BID PRN 10/16/17 01/30/18 [Percocet 7.5-325 mg Tablet] Cetirizine HCl [Zyrtec] 10 mg PO DAILY 01/30/18 01/30/18 Previous Rx's Medication Instructions Recorded Clopidogrel [Plavix] 75 mg PO DAILY #30 tablet 09/06/15 Albuterol Sulfate [Albuterol 1 puff IH Q4HR PRN #1 hfa.aer.ad 01/07/18 Inhaler] Docusate [Colace] 100 mg PO BID #60 capsule 01/30/18 Phenazopyridine HCl [Pyridium] 200 mg PO TIDAC #12 tab 01/30/18 Allergies Allergy/AdvReac Type Severity Reaction Status Date / Time sulfamethoxazole Allergy Hives Verified 01/30/18 12:24 [From Bactrim] trimethoprim [From Bactrim] Allergy Hives Verified 01/30/18 12:24 All systems ED: reviewed and negative except as stated. Review of Systems: As Per HPI Constitutional: Denies: fever Cardiovascular: Reports: chest pain, palpitations. Denies: dyspnea on exertion , syncope Respiratory: Denies: cough, dyspnea Gastrointestinal: Reports: nausea. Denies: abdominal pain, vomiting Genitourinary: Denies: urgency Musculoskeletal: Denies: back pain Integumentary: Denies: rash Neurological: Denies: headache, weakness, numbness Psychiatric: Reports: anxiety Endocrine: Reports: fatigue Chest Pain PMH - Past Medical History Medical history: Reports: aortic aneurysm, coronary artery disease, GERD, hyperlipidemia, hypertension, kidney stones, migraine, peripheral artery disease , thyroid disease Surgical history: Reports: appendectomy, hysterectomy, orthopedic, other, thyroidectomy, other Psychiatric history: Reports: anxiety, depression [employer] history: Reports: non-contributory - Social History Smoking Status: Unknown if ever smoked Alcohol use: Reports: none, rarely Drug use: Reports: none Physical Exam - General Limitations: no limitations General appearance: alert, in no apparent distress - Head Head exam: atraumatic, normocephalic - ENT ENT exam: normal oropharynx, mucous membranes moist - Neck Neck exam: Present: trachea midline. Absent: tenderness, meningismus - Chest Chest inspection: Present: normal inspection, symmetric chest wall rise - Respiratory Respiratory exam: Present: normal lung sounds bilaterally. Absent: respiratory distress, wheezes - Cardiovascular Cardiovascular exam: Present: regular rate, normal rhythm - Abdominal Exam Abdominal exam: Present: soft, Non-Tender - Extremities Exam Extremities exam: Present: normal inspection, full ROM - Neurological Exam Neurological exam: Present: alert, oriented X3 - Psychiatric Psychiatric exam: Present: normal affect, normal mood - Skin Skin exam: Present: warm, dry, intact. Absent: rash Course Vital Signs Temperature 97.4 F L 03/25/18 00:59 Pulse Rate 75 03/25/18 00:59 Respiratory Rate 18 03/25/18 00:59 Blood Pressure 127/83 03/25/18 00:59 O2 Sat by Pulse Oximetry 100 03/25/18 00:59 Temperature 96.6 F L 03/25/18 05:37 Pulse Rate 56 03/25/18 05:37 Respiratory Rate 16 03/25/18 05:37 Blood Pressure 91/51 03/25/18 05:37 O2 Sat by Pulse Oximetry 96 03/25/18 05:37 Oxygen Delivery Oxygen Delivery Room Air Chest Pain - MDM Narrative Medical decision making narrative: 48-year-old female with prior history of stent placement with coronary artery disease as the emergency department with concern for left-sided chest pain. Patient is hemodynamically stable here and did not appear to be in significant acute distress. EKG did not reveal any evidence of ischemic changes. Patient was given nitroglycerin paste and this took away her chest pain completely. Patient has a heart score 4. Troponin is negative. All of the labs are within normal limits. Patient agreed to be admitted to the hospital. - Lab Data Result diagrams: 03/25/18 01:51 03/25/18 01:28 Lab Results 03/25/18 03/25/18 03/25/18 Range/Units 01:28 01:41 01:41 WBC (4.3-11.1) K/mcL RBC (3.82-4.97) M/mcL Hgb (11.5-15.4) g/dL Hct (35.3-44.9) % MCV (83.0-100.0) fL MCH (28.0-33.3) pg MCHC (31.6-35.5) g/dL RDW (11.5-14.5) % Plt Count (140-400) K/mcL MPV (9.4-12.4) fL Immature Gran % (0-4) % Seg Neutrophils % % Lymphocytes % % Monocytes % % Eosinophils % % Basophils % % Neutrophils # (1.6-8.9) K/mcL Lymphocytes # (0.6-4.6) K/mcL Monocytes # (0.0-1.3) K/mcL Eosinophils # (0.0-0.6) K/mcL Basophils # (0.0-0.2) K/mcL Immature Plt Fraction (1.1-6.1) % D-Dimer 392 (0-500) ng/mLFEU Sodium 141 (136-145) mEq/L Potassium 3.8 (3.5-5.1) mEq/L Chloride 113 H (98-107) mEq/L Carbon Dioxide 19 L (23-29) mEq/L BUN 24 H (6-20) mg/dL Creatinine 1.16 (0.60-1.20) mg/dL Est GFR ( Amer) > 60 (> 60) Est GFR (Non-Af Amer) 50 L (> 60) BUN/Creatinine Ratio 21 (6-26) Glucose 137 H (70-105) mg/dL Calculated Osmolality 298 (280-300) Calcium 9.1 (8.6-10.3) mg/dL Troponin I < 0.03 (< 0.04) ng/mL B-Natriuretic Peptide 28 (Less than 100) pg/mL 03/25/18 Range/Units 01:51 WBC 4.4 (4.3-11.1) K/mcL RBC 4.01 (3.82-4.97) M/mcL Hgb 12.6 (11.5-15.4) g/dL Hct 36.9 (35.3-44.9) % MCV 92.0 (83.0-100.0) fL MCH 31.4 (28.0-33.3) pg MCHC 34.1 (31.6-35.5) g/dL RDW 12.6 (11.5-14.5) % Plt Count 230 (140-400) K/mcL MPV 10.1 (9.4-12.4) fL Immature Gran % 0.2 (0-4) % Seg Neutrophils % 56.9 % Lymphocytes % 30.2 % Monocytes % 8.4 % Eosinophils % 3.8 % Basophils % 0.5 % Neutrophils # 2.5 (1.6-8.9) K/mcL Lymphocytes # 1.3 (0.6-4.6) K/mcL Monocytes # 0.4 (0.0-1.3) K/mcL Eosinophils # 0.2 (0.0-0.6) K/mcL Basophils # 0.0 (0.0-0.2) K/mcL Immature Plt Fraction 2.5 (1.1-6.1) % D-Dimer (0-500) ng/mLFEU Sodium (136-145) mEq/L Potassium (3.5-5.1) mEq/L Chloride (98-107) mEq/L Carbon Dioxide (23-29) mEq/L BUN (6-20) mg/dL Creatinine (0.60-1.20) mg/dL Est GFR ( Amer) (> 60) Est GFR (Non-Af Amer) (> 60) BUN/Creatinine Ratio (6-26) Glucose (70-105) mg/dL Calculated Osmolality (280-300) Calcium (8.6-10.3) mg/dL Troponin I (< 0.04) ng/mL B-Natriuretic Peptide (Less than 100) pg/mL Heart Score - Score History: Moderately Suspicious EKG: Normal Age: 45-65 Risk Factors: Equal/Greater than 3 risk factor or history of atherosclerotic disease Troponin: Less than normal limit HEART Score Total: 4 Attestation Statement - Attestation Attestation: I examined this patient and my medical decision-making was reviewed with the Resident Physician. I agree with the documented findings, disposition and treatment plan as described except to the extent set forth below. Findings consistent with chest pain. Patient has significant risk factors for coronary artery disease. We will proceed with admission for further management cardiac consultation.
[2018-03-25 02:01] LABS: Basophils % 0.5 %; Eosinophils # 0.2 K/mcL (0.0-0.6); Eosinophils % 3.8 %; Hematocrit 36.9 % (35.3-44.9); Hemoglobin 12.6 g/dL (11.5-15.4); Immature Granulocytes % 0.2 % (0-4); Immature Platelets 2.5 % (1.1-6.1); Lymphocytes # 1.3 K/mcL (0.6-4.6); Lymphocytes % 30.2 %; Mean Corpuscular HGB Conc 34.1 g/dL (31.6-35.5); Mean Corpuscular Hemoglobin 31.4 pg (28.0-33.3); Mean Platelet Volume 10.1 fL (9.4-12.4); Monocytes # 0.4 K/mcL (0.0-1.3); Monocytes % 8.4 %; Neutrophils # 2.5 K/mcL (1.6-8.9); Platelet Count 230 K/mcL (140-400); Red Blood Count 4.01 M/mcL (3.82-4.97); Red Cell Distribution Width 12.6 % (11.5-14.5); Segmented Neutrophils % 56.9 %
[2018-03-25] MEDS ORDERED: Nitroglycerin 1 INCH/GM PACKET TP ONE (02:08)
[2018-03-25 02:32] LABS: BUN/Creatinine Ratio 21 (6-26); Blood Urea Nitrogen 24 mg/dL (6-20); Calcium 9.1 mg/dL (8.6-10.3); Carbon Dioxide 19 mEq/L (23-29); Chloride 113 mEq/L (98-107); Glucose 137 mg/dL (70-105); Osmolality,Calculated 298 (280-300); Potassium 3.8 mEq/L (3.5-5.1); Sodium 141 mEq/L (136-145); eGFR For African Americans > 60 (> 60); eGFR For Non-African Americans 50 (> 60)
[2018-03-25 02:33] LABS: Troponin I < 0.03 ng/mL (< 0.04)
[2018-03-25] MEDS ORDERED: Ondansetron 4 MG/2 ML VIAL IVP ONE (02:55)
[2018-03-25 08:40] VITALS: BP 99/54
--- NOTE | 2018-03-26 06:02 | Electrocardiograph Report ---
[facility] Test Date: 2018-03-25 Pat Name: Valentina Willingham Department: 103 Room: [facility] Gender: F Collection Technician: PALMIRA : 1970 Requested By: Gian Miguel Order Number: [id number] Reading MD: Derrick Aguilera Measurements Intervals [place] Rate: 65 P: 53 [place]: 141 QRS: 3 QRSD: 102 T: 54 QT: 402 QTc: 414 Interpretive Statements SINUS RHYTHM Electronically Signed On 03-26-2018 6:01:16 EDT by Derrick Aguilera
--- NOTE | 2018-03-26 20:34 | Emergency Department Note ---
Disposition Clinical Impression: Chest pain Qualifiers: Chest pain type: unspecified Qualified Code(s): R07.9 - Chest pain, unspecified Disposition: Admitted As Inpatient Condition: Fair Chest Pain HPI - General Chief Complaint: ED Chest Pain Stated Complaint: cp Time Seen by Provider: 03/25/18 01:17 Source: patient Limitations: no limitations Vital Signs Reviewed: Yes Nursing Notes Reviewed: Yes - History of Present Illness HPI Narrative: See previous history of present illness. Severity scale (1-10): 6 - Related Data Home Medications Medication Instructions Recorded Confirmed Aspirin 81 mg PO DAILY 07/06/15 03/25/18 Lovastatin 40 mg PO HS 08/30/16 03/25/18 Metoprolol XL (24 HR) Succ [Toprol 25 mg PO DAILY 08/30/16 03/25/18 Xl] Olopatadine HCl [Pataday] 1 drop BOTH EYES BID 10/08/16 03/25/18 Topiramate [Topamax] 50 mg PO BID 01/09/17 03/25/18 Famotidine [Pepcid] 40 mg PO DAILY 10/16/17 03/25/18 Cetirizine HCl [Zyrtec] 10 mg PO DAILY 01/30/18 03/25/18 Clopidogrel [Plavix] 75 mg PO DAILY 03/25/18 03/25/18 Escitalopram [Lexapro] 10 mg PO DAILY 03/25/18 03/25/18 Levothyroxine [Synthroid] 175 mcg PO 0630 03/25/18 03/25/18 hydrOXYzine pamoate [Hydroxyzine 1 - 2 cap PO Q6H 03/25/18 03/25/18 Pamoate] Allergies Allergy/AdvReac Type Severity Reaction Status Date / Time sulfamethoxazole Allergy Hives Verified 03/25/18 08:09 [From Bactrim] trimethoprim [From Bactrim] Allergy Hives Verified 03/25/18 08:09 Constitutional: Denies: fever Cardiovascular: Reports: chest pain, palpitations. Denies: dyspnea on exertion , syncope Respiratory: Denies: cough, dyspnea Gastrointestinal: Reports: nausea. Denies: abdominal pain, vomiting Genitourinary: Denies: urgency Musculoskeletal: Denies: back pain Integumentary: Denies: rash Neurological: Denies: headache, weakness, numbness Psychiatric: Reports: anxiety Endocrine: Reports: fatigue Chest Pain PMH - Past Medical History Medical history: Reports: aortic aneurysm, coronary artery disease, GERD, hyperlipidemia, hypertension, kidney stones, migraine, peripheral artery disease , thyroid disease Surgical history: Reports: appendectomy, hysterectomy, orthopedic, other, thyroidectomy, other Psychiatric history: Reports: anxiety, depression [employer] history: Reports: non-contributory - Social History Smoking Status: Unknown if ever smoked Alcohol use: Reports: none, rarely Drug use: Reports: none Physical Exam - General Limitations: no limitations General appearance: alert, in no apparent distress - Head Head exam: atraumatic, normocephalic - Eye Eye exam: Present: normal appearance - ENT ENT exam: normal oropharynx - Neck Neck exam: Present: trachea midline. Absent: tenderness - Chest Chest inspection: Present: normal inspection, symmetric chest wall rise - Respiratory Respiratory exam: Present: normal lung sounds bilaterally. Absent: respiratory distress, wheezes, accessory muscle use - Cardiovascular Cardiovascular exam: Present: regular rate, normal rhythm, normal heart sounds. Absent: JVD - Abdominal Exam Abdominal exam: Present: soft, Non-Tender. Absent: distention, guarding, rebound - Extremities Exam Extremities exam: Present: full ROM, normal capillary refill. Absent: tenderness, pedal edema - Back Exam Back exam: Present: full ROM. Absent: tenderness - Neurological Exam Neurological exam: Present: alert, oriented X3 - Psychiatric Psychiatric exam: Present: normal affect, normal mood - Skin Skin exam: Present: warm, dry, intact Course Vital Signs Temperature 97.4 F L 03/25/18 00:59 Pulse Rate 75 03/25/18 00:59 Respiratory Rate 18 03/25/18 00:59 Blood Pressure 127/83 03/25/18 00:59 O2 Sat by Pulse Oximetry 100 03/25/18 00:59 Temperature 98.6 F 03/25/18 08:38 Pulse Rate 71 03/25/18 08:38 Respiratory Rate 18 03/25/18 08:38 Blood Pressure 99/54 03/25/18 08:38 O2 Sat by Pulse Oximetry 97 03/25/18 08:38 Oxygen Delivery Oxygen Delivery Room Air Chest Pain - MDM Narrative Medical decision making narrative: 48-year-old female presents to the emergency department with left-sided chest pain. Patient does have coronary artery disease with stent. We will obtain chest x-ray EKG, troponin, CBC, BMP. Patient has already taken her aspirin and Plavix for today. Do not suspect stent thrombosis. Patient was given nitroglycerin paste which resolved her chest pain. Blood pressure began to lower, so we removed it. Chest X-Ray 03/25/18 01:41 IMPRESSION: No acute disease. D/ / Larry Goldberg MD / Larry Goldberg MD Interpreting Provider: Larry Goldberg MD Vital Signs Temperature 97.4 F L 03/25/18 00:59 Pulse Rate 75 03/25/18 00:59 Respiratory Rate 18 03/25/18 00:59 Blood Pressure 127/83 03/25/18 00:59 O2 Sat by Pulse Oximetry 100 03/25/18 00:59 Temperature 98.6 F 03/25/18 08:38 Pulse Rate 71 03/25/18 08:38 Respiratory Rate 18 03/25/18 08:38 Blood Pressure 99/54 03/25/18 08:38 O2 Sat by Pulse Oximetry 97 03/25/18 08:38 Oxygen Delivery Oxygen Delivery Room Air All labs and imaging were within normal limits. EKG did not reveal any ischemic changes suggestive of ischemia. Patient hemodynamically stable and not in acute distress. However, with patient's risk factors and history, we have admitted this patient for observation and further workup for her chest pain. Patient agree with plan. Spoke with the hospitalist who agreed to accept admission. - Lab Data Result diagrams: 03/25/18 01:51 03/25/18 01:28 Lab Results 03/25/18 03/25/18 03/25/18 Range/Units 01:28 01:41 01:41 WBC (4.3-11.1) K/mcL RBC (3.82-4.97) M/mcL Hgb (11.5-15.4) g/dL Hct (35.3-44.9) % MCV (83.0-100.0) fL MCH (28.0-33.3) pg MCHC (31.6-35.5) g/dL RDW (11.5-14.5) % Plt Count (140-400) K/mcL MPV (9.4-12.4) fL Immature Gran % (0-4) % Seg Neutrophils % % Lymphocytes % % Monocytes % % Eosinophils % % Basophils % % Neutrophils # (1.6-8.9) K/mcL Lymphocytes # (0.6-4.6) K/mcL Monocytes # (0.0-1.3) K/mcL Eosinophils # (0.0-0.6) K/mcL Basophils # (0.0-0.2) K/mcL Immature Plt Fraction (1.1-6.1) % D-Dimer 392 (0-500) ng/mLFEU Sodium 141 (136-145) mEq/L Potassium 3.8 (3.5-5.1) mEq/L Chloride 113 H (98-107) mEq/L Carbon Dioxide 19 L (23-29) mEq/L BUN 24 H (6-20) mg/dL Creatinine 1.16 (0.60-1.20) mg/dL Est GFR ( Amer) > 60 (> 60) Est GFR (Non-Af Amer) 50 L (> 60) BUN/Creatinine Ratio 21 (6-26) Glucose 137 H (70-105) mg/dL Calculated Osmolality 298 (280-300) Calcium 9.1 (8.6-10.3) mg/dL Troponin I < 0.03 (< 0.04) ng/mL B-Natriuretic Peptide 28 (Less than 100) pg/mL 03/25/18 Range/Units 01:51 WBC 4.4 (4.3-11.1) K/mcL RBC 4.01 (3.82-4.97) M/mcL Hgb 12.6 (11.5-15.4) g/dL Hct 36.9 (35.3-44.9) % MCV 92.0 (83.0-100.0) fL MCH 31.4 (28.0-33.3) pg MCHC 34.1 (31.6-35.5) g/dL RDW 12.6 (11.5-14.5) % Plt Count 230 (140-400) K/mcL MPV 10.1 (9.4-12.4) fL Immature Gran % 0.2 (0-4) % Seg Neutrophils % 56.9 % Lymphocytes % 30.2 % Monocytes % 8.4 % Eosinophils % 3.8 % Basophils % 0.5 % Neutrophils # 2.5 (1.6-8.9) K/mcL Lymphocytes # 1.3 (0.6-4.6) K/mcL Monocytes # 0.4 (0.0-1.3) K/mcL Eosinophils # 0.2 (0.0-0.6) K/mcL Basophils # 0.0 (0.0-0.2) K/mcL Immature Plt Fraction 2.5 (1.1-6.1) % D-Dimer (0-500) ng/mLFEU Sodium (136-145) mEq/L Potassium (3.5-5.1) mEq/L Chloride (98-107) mEq/L Carbon Dioxide (23-29) mEq/L BUN (6-20) mg/dL Creatinine (0.60-1.20) mg/dL Est GFR ( Amer) (> 60) Est GFR (Non-Af Amer) (> 60) BUN/Creatinine Ratio (6-26) Glucose (70-105) mg/dL Calculated Osmolality (280-300) Calcium (8.6-10.3) mg/dL Troponin I (< 0.04) ng/mL B-Natriuretic Peptide (Less than 100) pg/mL Heart Score - Score History: Moderately Suspicious EKG: Normal Age: 45-65 Risk Factors: Equal/Greater than 3 risk factor or history of atherosclerotic disease Troponin: Less than normal limit HEART Score Total: 4
--- NOTE | 2018-03-26 21:29 | Event Note ---
Date of Encounter: 03/26/18 Time of Encounter: 21:28 I was never notified by ED to admit this patient. I did not accept this patient for admission to hospitalist service. I tried to confirm with 2 [facility] nursing staff right now if patient was still here. Patient left, but no one knows if patient was discharged or left AMA. I cannot do any documentation on this patient because I never saw her.
== END 2018-03-25 10:10 | disposition left against medical advice (07) ==
LOC: EMEROO 00:58 → 2SOUTHHOLD 00:58
PROVIDERS: ADMIT Family Medicine; ATTEND Family Medicine